=== PATIENT | male | born 1970 | race Two or more races ===

== ENCOUNTER → 2017-10-20 08:37 | Outpatient (CLI) | payer BC | END | disposition home or self-care (01) | LOC: D.CT 10-16 12:00 | DX: I72.3 Aneurysm of iliac artery (principal) ==

== ENCOUNTER 2018-10-22 06:06 | Outpatient (CLI) | payer BC ==
[~2018-10-22] VITALS: Ht 167.6 cm; Wt 76.7 kg
--- NOTE | ~2018-10-22 | HEMODYNAMI ---
PATIENT:EVELYN LEE MEDICAL RECORD: [id number] : 70 LOCATION:DServandoCAT ADMISSION DATE: 10/22/18 Generatedon:10/22/201815:52 Patient name: EVELYN LEE Patient #: [id number] SSN: : 1970 Date of study: 10/22/2018 Page: Of Hemodynamic Procedure Report Patient Data Patient Demographics Procedure consent was obtained First Name: EVELYN Gender: Male Last Name: ROSA : 1970 Patient #: [id number] Age: 48 year(s) Race: Other Additional ID: [id number] Contact details [address]: [address] [place] [address] State: [place] City: [place] Zip code: [address] Past Medical History Allergies: No known allergies Admission Admission Data Admission Date: 10/22/2018 Admission Time: 6:06 Lab Results Lab Result Date: 10/22/2018 Lab Result Time: 0:00 Biochemistry Name Units Result Min Max BUN mg/dl 18 --(---*)-- 7 18 Creatinine mg/dl 1 --(--*-)-- 0.6 1.3 CBC Name Units Result Min Max Hemoglobin g/dl 16.7 --(---*)-- 13.5 17.5 Procedure Procedure Types Cath Procedure Diagnostic Procedure LHC LHC w/Coronaries Peripheral Cath Diagnostic Procedure Senior Vice President & General Counsel Peripheral Procedures Zqoje-Dtygrpi-Hzf-Off Procedure Description Procedure Date Procedure Date: 10/22/2018 Procedure Start Time: 15:34 Procedure End Time: 15:51 Procedure Staff Name Function Philippe Reeder MD Performing Physician Flako Mclean RN Bicycle Inspector eMrcy Mosquera RT Monitor Dee Dejesus RT Scrub Bhakti Millan RN Nurse Procedure Data Cath Procedure Fluoroscopy Diagnostic fluoroscopy Total fluoroscopy Time: 5.7 time: 5.7 min min Diagnostic fluoroscopy Total fluoroscopy dose: 569 dose: 569 mGy mGy Contrast Material Contrast Material Type Amount (ml) Isovue 300 79 Entry Location Entry Primary Successful Side Size Upsize Upsize Entry Closure Bertrand ccessful Closure Location (Fr) 1 (Fr) 2 (Fr) Remarks Device Remarks Radial Right 6 Fr Mechanical artery Short Compression Estimated blood loss: 5 ml Diagnostic catheters Device Type Used For End Catheter Placement DIAGNOSTIC Big Spring 110cm 5 Multi-vessel Fr catheter ([id number]) Angiography DIAGNOSTIC AR2 MOD 5 Fr Right Coronary catheter ([id number]) Angiography DIAGNOSTIC Aqua Multi-vessel Berenstein 125cm 5Fr Angiography catheter ([id number]) Procedure Complications No complications Procedure Medications Medication Administration Route Dosage Oxygen etCO2 Nasal cannula 2 l/min Lidocaine 2% added to field 20 Heparin Flush Bag added to field 2 bags (1000units/500ml NS) 0.9% NaCl I.V. 100 ml/hr Radial Cocktail I.A. 1 syringe (Verapomil 2mg/Nitro 400mcg/Heparin 1500units) Versed I.V. 2 mg Fentanyl I.V. 100 mcg Fentanyl I.V. 50 mcg Lopressor I.V. 5 mg Hemodynamics Rest HGB: 16.7 (g/dl) Heart Rate: 92 (bpm) Pressure Samples Time Site Value (mmHg) Purpose Heart Use Rate(bpm) 15:37 LV 140/57,85 Snapshot 101 Snapshots Pre Cath Intra NCS Post Cath Vital Signs Time Heart Resp SPO2 etCO2 NIBP (mmHg) Rhythm Pain Sedation Rate (ipm) (%) (mmHg) Status Level (bpm) 15:23:55 96 21 100 0 152/98(126) NSR 0 (11) 10(A) , No pain 15:28:07 103 19 100 0 148/97(117) NSR 0 (11) 10(A) , No pain 15:32:17 95 14 100 37.8 146/96(115) NSR 0 (11) 10(A) , No pain 15:36:23 105 14 100 8.3 138/95(126) NSR 0 (11) 9(A) , No pain 15:40:31 102 17 95 36.2 136/86(122) NSR 0 (11) 9(A) , No pain 15:44:39 85 17 98 35.5 131/88(104) NSR 0 (11) 10(A) , No pain 15:48:49 90 29 100 27.2 125/82(99) NSR 0 (11) 10(A) , No pain Medications Time Medication Route Dose Verified Delivered Reason Notes Effectiveness by by 15:31:40 Oxygen etCO2 2 l/min Philippe Ya used for Nasal Lilli Millan RN procedure cannula 15:31:48 Lidocaine 2% added 20ml Philippe Paez for local to vial Lilli Reeder MD anesthetic field 15:31:54 Heparin Flush added 2 bags Philippe Paez used for Bag to Lilli Reeder MD procedure (1000units/500ml field NS) 15:32:05 0.9% NaCl I.V. 100 Philippe Ya Per ml/hr Lilli Millan RN physician 15:32:47 Versed I.V. 2 mg Philippe Ya for sedation Lilli Millan RN 15:32:53 Fentanyl I.V. 100 mcg Philippe Ya for sedation Lilli Millan RN 15:36:40 Radial Cocktail I.A. 1 Philippe Paez for (Verapomil syringe Lilli Reeder MD vasodilation 2mg/Nitro 400mcg/Heparin 1500units) 15:37:20 Fentanyl I.V. 50 mcg Philippe Ya for sedation Lilli Millan RN 15:40:41 Lopressor I.V. 5 mg Philippe Ya Per Lilli Millan RN physician Procedure Log Time Note 15:00:42 Signed procedure consent form obtained from patient. 15:00:43 Diagnostic Cath status Elective 15:00:44 Time tracking: Regular hours (M-F 7:00 - 5:00) 15:00:49 Plan of Care:Hemodynamics will remain stable., Cardiac rhythm will remain stable., Comfort level will be maintained., Respiratory function will remain adequate., Patient/ family verbilizes understanding of procedure., Procedure tolerated without complication., Recovers from procedure without complications.. 15:07:09 Flako Mclean RN sent for patient. Start room use. 15:14:29 Lab Result : Hemoglobin 16.7 g/dl 15:14:29 Lab Result : Creatinine 1 mg/dl 15:14:29 Lab Result : BUN 18 mg/dl 15:16:32 Patient received from ED to CCL 1 Alert and oriented. Tansferred to table in Supine position. 15:16:33 Warm blankets applied, and tyson hugger turned on for patient comfort. 15:16:34 Correct patient and procedure confirmed by team. 15:16:34 ECG and BP/O2 sat monitors applied to patient. 15:22:53 Vital chart was started 15:22:56 Rhythm: sinus rhythm 15:22:59 Baseline sample Acquired. 15:23:00 Full Disclosure recording started 15:23:04 H&P Date Dictated: 10/22/2018 Within 30 days and on chart., ER History on chart.. 15:23:14 Pre-procedure instructions explained to patient. 15:23:15 Pre-op teaching completed and patient verbalized understanding. 15:23:17 Family in waiting room. 15:23:19 Patient NPO since Midnight. 15:23:26 Patient allergic to No known allergies 15:23:28 Is the patient allergic to Iodine/contrast media? No. 15:23:30 Is patient on blood thinner?Yes 15:23:31 ACC The patient was administered the following blood thiners within the last 24 hours: ACCPlavix 15:23:34 Patient diabetic? No. 15:23:45 Previous problem with sedation/anesthesia? No ? 15:23:48 Snore? Yes 15:23:49 Sleep apnea? No 15:23:51 Deviated septum? No 15:23:51 Opens mouth fully? Yes 15:23:52 Sticks out tongue? Yes 15:23:54 Airway obstruction? No ? 15:23:56 Dentures? No ? 15:24:39 Pre procedure: left dorsailis pedis pulse 2+ Normal; easily identifiable; not easily obliterated 15:24:41 Modified Julio's test Ulnar < 7 seconds 15:24:42 Patient pain scale 0/10 ?. 15:24:50 IV patent on arrival in left forearm with 0.9% NaCl at KVO. 15:24:52 Lab results completed and on chart. 15:24:58 Right Radial & Left Groin area was prepped with chlora-prep and draped in sterile fashion 15:25:05 Alarms reviewed by R. N. 15:25:06 Sharps counted by scrub and verified by R.N. 15:25:33 Use device set Radial Dx or PCI 15:25:35 ACIST Syringe (56201) opened to sterile field. 15:25:35 Medline Cath Pack ([id number]) opened to sterile field. 15:25:35 Bag Decanter (2001S) opened to sterile field. 15:25:36 DIAGNOSTIC WIRE .035 260cm J wire (537432) opened to sterile field. 15:25:36 ACIST Hand Control (91634) opened to sterile field. 15:25:37 ACIST Manifold (54051) opened to sterile field. 15:25:37 Tegaderm 4 x 4 (1626W) opened to sterile field. 15:25:38 MBrace Wrist Support ([id number]) opened to sterile field. 15:25:39 SHEATH 6FR Slender (85-9330) opened to sterile field. 15:27:04 Physician arrived 15:: --------ALL STOP TIME OUT------ 15::05 Final Timeout: patient, procedure, and site verified with staff and physician. All members of the team are in agreement. 15:27:08 Right Radial & Left Groin site verified by team. 15:27:11 Physical assessment completed. ASA score P 2 - A patient with mild systemic disease as per Philippe Reeder MD. 15:27:14 Sedation plan: IV Moderate Sedation Medication:Versed, Fentanyl 15:31:40 Oxygen 2 l/min etCO2 Nasal cannula was administered by Bhakti Millan RN; used for procedure; 15:31:48 Lidocaine 2% 20ml vial added to field was administered by Philippe Reeder MD; for local anesthetic; 15:31:54 Heparin Flush Bag (1000units/500ml NS) 2 bags added to field was administered by Philippe Reeder MD; used for procedure; 15:32:05 0.9% NaCl 100 ml/hr I.V. was administered by Bhakti Millan RN; Per physician; 15:32:47 Versed 2 mg I.V. was administered by Bhakti Millan RN; for sedation; 15:32:53 Fentanyl 100 mcg I.V. was administered by Bhakti Millan RN; for sedation; 15:34:22 Procedure started. 15:34:28 Local anesthetic to left radial artery with Lidocaine 2% by Philippe Reeder MD.INITIAL ACCESS ONLY 15:34:50 A 6 Fr Short sheath was inserted into the Right Radial artery 15:35:12 A DIAGNOSTIC Big [place] 110cm 5 Fr catheter (039995) was advanced over the wire and used for Multi-vessel Angiography. 15:36:40 Radial Cocktail (Verapomil 2mg/Nitro 400mcg/Heparin 1500units) 1 syringe I.A. was administered by Philippe Reeder MD; for vasodilation; 15:37:20 Fentanyl 50 mcg I.V. was administered by Bhakti Millan RN; for sedation; 15:37:30 LV hemodynamics recorded. 15:37:31 LV gram done using ROSADO 15:37:34 Injector settings: Ml/sec: 5, Volume: 15, 15:37:43 EF : 70 % 15:38:26 Catheter removed. 15:39:58 A DIAGNOSTIC AR2 MOD 5 Fr catheter ([id number]) was advanced over the wire and used for Right Coronary Angiography. 15:40:41 Lopressor 5 mg I.V. was administered by Bhakti Millan RN; Per physician; 15:40:42 RCA angiography performed. 15:40:45 Injector settings: Ml/sec: 3, Volume: 6, 15:40:59 Catheter removed. 15:41:01 GUIDE 6FR XBLAD 3.5 catheter ([id number]) opened to sterile field. 15:41:09 6 Fr xblad 3.5 guide catheter was inserted over the wire 15:42:34 Guide Catheter removed. unable to cannulate vessel. 15:43:05 GUIDE 6FR EBU 3.0 catheter ([id number]) opened to sterile field. 15:43:55 6 Fr ebu 3 guide catheter was inserted over the wire 15:45:05 LCA angiography performed. 15:45:08 Injector settings: Ml/sec: 3, Volume: 6, 15:45:10 Catheter removed. 15:45:29 A DIAGNOSTIC Aqua Berenstein 125cm 5Fr catheter ([id number]) was advanced over the wire and used for Multi-vessel Angiography. 15:46:16 Abdominal angiogram w/ runoff was performed. 15:48:18 Injector settings: Ml/sec: 10, Volume: 20, 15:48:43 Catheter removed. 15:48:56 TR BAND Standard ([id number]) opened to sterile field. 15:49:42 Sheath removed intact; hemostasis achieved with Mechanical Compression to the Right Radial artery. 15:49:44 Procedure ended.(Physican Out) 15:50:58 Fluoroscopy time 05.70 minutes. 15:51:03 Fluoroscopy dose: 569 mGy 15:51:03 Flurop Dose total: 569 15:51:07 Contrast amount:Isovue 300 79ml. 15:51:09 Sharps counted by scrub and verified by R.N. 15:51:15 TR band inflated with 10cc of air. 15:51:17 Insertion/operative site no bleeding no hematoma. 15:51:21 Post right radial artery:stable 15:51:23 Post Procedure Pulses reassessed and unchanged 15:51:27 Post procedure rhythm: unchanged. 15:51:30 Estimated blood loss: 5 ml 15:51:32 Post procedure instruction explained to patient.Patient verbalizes understanding. 15:51:33 Patient needs reinforcement of post procedure teaching. 15:51:43 Procedure and supply charges have been captured, reviewed, submitted and are correct. 15:51:47 Procedure Complication : No complications 15:51:50 Vital chart was stopped 15:51:50 See physician's report for complete and final results. 15:51:52 Report given to Pre/Post Procedure Room. 15:51:54 Patient transfered to Pre/Post Procedure Room with Stretcher. 15:51:56 Procedure ended. 15:51:56 Full Disclosure recording stopped 15:52:20 End room use (Document Last) Device Usage Item Name Manufacture Quantity Catalog Hospital Part Current Minimal Lot# / Number Charge Number Stock Stock Serial# Code ACIST Acist 1 65167 051386 479112 087066 20 Syringe Medical (68633) Systems Inc Medline Medline 1 [id number] 591319 70106 394267 5 Cath Pack ([id number]) Bag Microtek 1 2001S 800764 22962 908447 5 Decanter Medical Inc. () DIAGNOSTIC [facility] [place] 1 114433 669518 689563 716794 30 WIRE .035 260cm J wire (284629) ACIST Hand Acist 1 61564 589843 401568 878522 5 Control Medical (13996) Systems Inc ACIST Acist 1 77806 536575 024109 712899 5 Manifold Medical (85803) Systems Inc Tegaderm 4 3M 1 1626W 124510 767105 493928 5 x 4 (1626W) MBrace Advanced 1 140-0250-00 633559 87937 680009 5 Wrist Vascular Support Dynamics (582045134) SHEATH 6FR Terumo 1 [id number] 565828 009456 302449 5 Slender (80-1060) DIAGNOSTIC Terumo 1 40-7513 695784 131691 684152 5 Big [place] 110cm 5 Fr catheter (736568) DIAGNOSTIC Cardinal 1 [id number] 690035 134978 356933 20 AR2 MOD 5 Health Fr catheter (421920T) GUIDE 6FR Cardinal 1 [id number] 882062 365532 298725 10 XBLAD 3.5 Health catheter (83474750) GUIDE 6FR Medtronic 1 [id number] 354977 01807 106828 0 EBU 3.0 catheter ([id number]) DIAGNOSTIC Cardinal 1 NOP3817 173736 852962 694848 5 [facility] 125cm 5Fr catheter (ZWJ6253) TR BAND Terumo 1 [id number] 408282 754741 038771 40 Standard ([id number]) Signature Audit Killen Stage Time Signature Unsigned Intra-Procedure 10/22/2018 Mercy Mosquera 3:52:50 PM RT(R) Signatures Monitor : Mercy Mosquera RT Signature : Date : Time : [place] [place] [address]
[2018-10-22 06:10] VITALS: Ht 167.6 cm; Wt 76.7 kg
[2018-10-22] MEDS ORDERED: ZESTRIL40 MG PO (06:12)
[2018-10-22] MEDS ORDERED: PROPRANOLOL HCL20 MG (06:13)
[2018-10-22] MEDS ORDERED: BUTALB-APAP-CA1 EACH PO (06:13)
[2018-10-22 06:40] LABS: BASOPHILS 0.3 % (0-2); EOSINOPHILS 0.5 % (0-7); HEMATOCRIT 48.3 % (42.0-54.0); HEMOGLOBIN 16.7 g/dL (13.5-17.5); IMMATURE GRANULOCYTES 0.3 % (0-5); LYMPHOCYTES 24.3 % (15-50); MCH 29.5 pg (26.0-34.0); MCHC 34.6 g/dL (31.0-37.0); MCV 85.3 fL (80.0-100.0); MEAN PLATELET VOLUME 9.8 fL (7.4-10.4); MONOCYTES 6.8 % (2-11); NEUTROPHILS 67.8 % (40-80); PLATELET COUNT 204 10x3/uL (130-400); RBC 5.66 10x6/uL (4.20-6.10); RDW 13.2 % (11.5-14.5); WBC 7.8 10x3/uL (4.8-10.8)
[2018-10-22 06:50] LABS: APPEARANCE CLEAR (CLEAR); BILIRUBIN NEGATIVE (NEGATIVE); COLOR YELLOW (YELLOW); GLUCOSE NEGATIVE (NEGATIVE); KETONE NEGATIVE (NEGATIVE); NITRITE NEGATIVE (NEGATIVE); PROTEIN NEGATIVE (NEGATIVE); UROBILINOGEN NORMAL (NORMAL)
[2018-10-22 06:51] LABS: ALBUMIN 3.6 g/dL (3.4-5.0); ALKALINE PHOSPHATASE 93 U/L (46-116); ALT (SGPT) 50 U/L (10-68); BILIRUBIN - TOTAL 0.36 mg/dL (0.2-1.3); CALC OSMOLALITY 284 mosm/kg (275-300); CALCIUM 8.5 mg/dL (8.5-10.1); CARBON DIOXIDE 29.5 mmol/L (21.0-32.0); CHLORIDE - SERUM 107 mmol/L (98-107); GLUCOSE 99 mg/dL (74-106); POTASSIUM - SERUM 4.1 mmol/L (3.5-5.1); PROTEIN - SERUM 7.5 g/dL (6.4-8.2); SODIUM 142 mmol/L (136-145); UREA NITROGEN 18 mg/dL (7-18); eGFR NON AFRICAN AMERICAN 85 mL/min (90-120)
[2018-10-22 07:06] LABS: AMYLASE - SERUM 64 U/L (25-115); CKMB 1.5 U/L (0.0-3.6); CREATINE KINASE 141 UL (21-232); LIPASE 156 U/L (73-393)
[2018-10-22 07:16] LABS: TROPONIN-I 0.097 ng/mL (0.000-0.060)
--- NOTE | 2018-10-22 13:29 | CN ---
PATIENT NAME:EVELYN LEE MEDICAL RECORD: [id number] : 70 LOCATION:D.CAT ADMIT DATE: ACCOUNT: [id number] CONSULTING PHYSICIAN: IHSAN REIS MD REFERRING PHYSICIAN: IHSAN REIS MD DATE OF CONSULTATION: 10/22/2018 CARDIOLOGY CONSULTATION DATE OF SERVICE: 10/22/2018 DIAGNOSES: 1. Elevated troponin. 2. Acute coronary syndrome. 3. Family history of coronary artery disease. 4. Hypertension. HISTORY OF PRESENT ILLNESS: This is a gentleman with no history of ischemic heart disease, does have a history of hypertension, family history of coronary artery disease, who awoke with episode of what appears to be epigastric pain, but it was associated with diaphoresis and nausea. His troponin is elevated suggestive this is an acute coronary syndrome picture. His EKG does have ST-T abnormalities anteriorly. He is currently pain free now. PHYSICAL EXAMINATION: GENERAL APPEARANCE: Well-nourished, well-developed, appears stated age. Level of distress, comfortable. PSYCHIATRIC: Mental status, alert, normal affect. Orientation, oriented to time, place and person. EYES: Lids and conjunctiva, noninjected. No discharge, no pallor. ENT: Lips, teeth, gums, normal dentition. Oropharynx, no cyanosis, no pallor. NECK: Carotid arteries, bilateral normal upstroke, no bruits, no thrills. JUGULAR VEINS: No jugular venous pressure or distention. CERVICAL LYMPH NODES: Nontender, nonenlarged. THYROID: Not enlarged. Nontender. No nodules. LUNGS: Respiratory effort, unlabored. CHEST: Normal curvature. No thoracic deformity. No chest wall tenderness. Percussion, resonant. Auscultation, clear. No wheezes, no rales, no rhonchi. CARDIOVASCULAR: Precordial exam, nondisplaced. No heaves or pericardial thrills. Rate and rhythm, regular. Heart sounds, normal S1, normal S2. No S3, no gallop, no rub. Systolic murmur, not heard. Diastolic murmur, not heard. EXTREMITIES: No cyanosis, no edema. Peripheral pulses, full and equal in all extremities, except as noted. No bruits appreciated. ABDOMEN: Soft, nondistended. Normal aorta. No bruit. Nontender. No masses. Liver, nontender, no hepatomegaly. Spleen, nontender, no splenomegaly. MUSCULOSKELETAL: No joint tenderness. No joint swelling. No erythema. NEUROLOGICAL: Normal gait, normal strength, normal tone. SKIN: Warm and dry. OVERALL IMPRESSION: Acute coronary syndrome with mildly elevated troponin, most likely has hemodynamically significant coronary artery disease. We will proceed with coronary angiography. Further care depends upon findings of the angiography. TRANSINT:[id number] Voice Confirmation ID: [id number] DOCUMENT ID: [id number] CONSULT REPORT [id number] EVELYN LEE, IHSAN HARLEY at 1329 CC: [id number] DICTATION DATE: 10/22/18 1150 RETORT PRESS OPERATOR: 10/22/18 1212 [facility] [address] [place] [address]
[2018-10-22 15:17] VITALS: BP 144/90
--- NOTE | 2018-10-22 16:05 | NUR ---
PT RECEIVED VIA STRETCHER FROM TACTICAL DEBRIEFER OFFICER FOR RECOVERY. PT AWAKE, DENIES CHEST PAIN OR NAUSEA. HR NSR RATE 79, BP 133/95, 02 SAT 99 ON ROOM AIR. TR BAND TO R WRIST IN PLACE, NO BLEEDING OR HEMATOMA NOTED. CAP REFILL BRISK, EXTREMITY WARM AND PINK. CALL LIGHT IN REACH. AT BEDSIDE.
--- NOTE | 2018-10-22 16:31 | NUR ---
PT AWAKE VISITING W FAMILY, DENIES PAIN OR NEEDS. TR BAND IN PLACE, NO BLEEDING OR HEMATOMA NOTED. HR NSR RATE 75, BP 130/91. CALL LIGHT IN REACH
--- NOTE | 2018-10-22 16:50 | NUR ---
SANDWICH AND DRINK SERVED PER REQUEST. PT DENIES NAUSEA OR PAIN. CALL LIGHT IN REACH, AT BEDSIDE.
--- NOTE | 2018-10-22 17:05 | NUR ---
4 CC AIR REMOVED FROM TR BAND, NO BLEEDING OR SWELLING NOTED. HR NSR RATE 70, BP 132/74. DENIES PAIN OR NEEDS. CALL LIGHT IN REACH
--- NOTE | 2018-10-22 17:30 | NUR ---
3 ADD'L CC OF AIR REMOVED FROM TR BAND, NO BLEEDING OR SWELLING NOTED. CAP REFILL BRISK, EXTREMITY REMAINS WARM AND PINK PT DENIES PAIN OR NEEDS. REMAINS AT BEDSIDE.
--- NOTE | 2018-10-22 17:45 | NUR ---
DISCHARGE INSTRUCTIONS REVIEWED WITH PT AND , BOTH VERBALIZED UNDERSTANDING. IV REMOVED W CATH INTACT, MONITORS REMOVED. PT UP TO DRESS FOR DISCHARGE
--- NOTE | 2018-10-22 17:59 | NUR ---
TR BAND AND REMAINING AIR REMOVED. 2X2 AND TEGADERM DRESSING APPLIED. NO BLEEDING OR SWELLING NOTED TO SITE. PT DISCHARGED VIA WC TO PRIVATE VEHICLE.
--- NOTE | 2018-10-23 16:39 | OP ---
PATIENT NAME: EVELYN LEE MEDICAL RECORD: [id number] :70 LOCATION:D.CAT ADMISSION DATE: SURGEON: IHSAN REIS MD DATE OF OPERATION: 10/22/2018 PROCEDURES: 1. Left heart catheterization. 2. Selective coronary angiography. 3. Left ventriculogram. 4. Aortofemoral runoff. 5. Abdominal aortography. INDICATION: Chest pain compatible with angina, elevated troponin, peripheral vascular disease. PROCEDURE IN DETAIL: After informed consent was obtained with detailed description of risks and benefits as well as alternative therapies, the patient elected to proceed with angiogram and heart catheterization. The right radial area was prepped and draped in normal sterile fashion. Right radial artery was cannulated via modified Seldinger technique with placement of 5-Mongolian sheath. All catheters were exchanged through this sheath. FINDINGS: Left ventriculogram performed in standard 30-degree ROSADO view reveals good cardiac wall motion throughout all segments. Overall ejection fraction is estimated at 60%. SELECTIVE CORONARY ANGIOGRAPHY: 1. Left main, left anterior descending, left circumflex, and right coronary artery are all smooth-walled vessels with no angiographic evidence of coronary artery disease. 2. Aortofemoral runoff was performed. The catheter was pulled back for abdominal aortography. FINDINGS: Abdominal aortography reveals no significant abdominal aortic disease. No dissection or aneurysm formation. RIGHT LE. Common internal and external iliacs are smooth-walled vessels with no angiographic evidence of peripheral vascular disease. 2. FEMORAL SYSTEM: Common, superficial, and deep femorals have no significant peripheral vascular disease. 3. Popliteal and infrapopliteal vessels give good 3-vessel runoff to the foot with no significant peripheral vascular disease. LEFT LE. Common internal and external iliacs are smooth-walled vessels with no angiographic evidence of peripheral vascular disease. 2. FEMORAL SYSTEM: Common, superficial, and deep femorals have no significant peripheral vascular disease. 3. Popliteal and infrapopliteal vessels give good 3-vessel runoff to the foot with no significant peripheral vascular disease. OVERALL IMPRESSION: 1. No peripheral vascular disease is present. 2. No coronary disease is present. OPERATIVE REPORT [id number] EVELYN LEE 3. Normal LV function. Symptomatology is not cardiovascular in etiology. TRANSINT:[id number] Voice Confirmation ID: [id number] DOCUMENT ID: [id number] IHSAN REIS MD at 1639 CC: [id number] DICTATION DATE: 10/22/18 1553 SEISMOMETER OPERATOR: 10/22/18 1755 DEP CLI 10/22/18 [place] [id number] [place] [address]
== END 2018-10-22 18:00 | disposition home or self-care (01) ==
LOC: D.CATH 06:06 → D.ER 06:06 → EDSTATUS 11:09 → D.CATH 18:00
PROVIDERS: Family Medicine
DX: R79.89 Other specified abnormal findings of blood chemistry (principal); R10.13 Epigastric pain; R11.0 Nausea; R61 Generalized hyperhidrosis; I10 Essential (primary) hypertension

== ENCOUNTER → 2019-01-23 15:30 | Outpatient (CLI) | payer BC ==
[~2019-01-23 15:30] MED LIST: BUTALB-APAP-CA1 EACH PO; PROPRANOLOL HCL20 MG; ZESTRIL40 MG PO
== END | disposition home or self-care (01) ==
LOC: D.CT 13:00
PROVIDERS: ATTEND Internal Medicine Cardiovascular Disease
DX: I72.3 Aneurysm of iliac artery (principal)

== ENCOUNTER → 2020-04-27 09:54 | Outpatient (CLI) | payer BC | END | disposition home or self-care (01) | LOC: D.CT 09:54 | PROVIDERS: ATTEND Internal Medicine Cardiovascular Disease | DX: I72.3 Aneurysm of iliac artery (principal) ==

== ENCOUNTER 2020-07-02 12:17 | Inpatient (IN) | payer BC ==
[~2020-07-02] VITALS: Ht 167.6 cm; Wt 75.0 kg
--- NOTE | ~2020-07-02 | OP ---
PATIENT NAME: EVELYN LEE MEDICAL RECORD: [id number] :70 LOCATION:D.ALFREDOI D.CV08 ADMISSION DATE:07/09/20 SURGEON: SILVIANO CID MD DATE OF OPERATION: 07/09/2020 CO-SURGEON: 1. Silviano Cid MD 2. 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 PROCEDURE NOTE: By mutual agreement, the operative report was dictated by Dr. José Miguel Hinton. We were co-surgeons with percutaneous access ultrasound-guided to both common femoral arteries deploying the graft and percutaneous closure. TRANSINT:[id number] Voice Confirmation ID: [id number] DOCUMENT ID: [id number] SILVIANO CID MD CC: [id number] DICTATION DATE: 07/14/20 1325 MUTTON PUNCHER: 07/14/20 2234 DIS IN 07/11/20 [place] [id number] [place] [id number]
--- NOTE | ~2020-07-02 | HEMODYNAMI ---
PATIENT:EVELYN LEE MEDICAL RECORD: [id number] : 70 LOCATION[facility] ADMISSION DATE: 07/09/20 Generatedon:07/09/202010:02 Patient name: EVELYN LEE Patient #: [id number] SSN: : 1970 Date of study: 07/09/2020 Page: Of Hemodynamic Procedure Report Patient Data Patient Demographics Procedure consent was obtained First Name: EVELYN Gender: Male Last Name: ROSA : 1970 Patient #: [id number] Age: 50 year(s) Race: Other Additional ID: [id number] Contact details Address: [address] [place] [address] State: [place] City: [place] Zip code: [address] Past Medical History Allergies: No known allergies Admission Admission Data Admission Date: 07/09/2020 Admission Time: 5:13 Room #: [facility] Procedure Procedure Types Cath Procedure Peripheral Cath Diagnostic Procedure Miscellaneous Procedure Description Procedure Date Procedure Date: 07/09/2020 Procedure Start Time: 8:14 Procedure Staff Name Function Silviano Gray MD Performing Physician José Miguel Hinton MD Performing Physician Kamaljit Valderrama Jr, CRNA Additional personnel Nikia Mark RN Nurse Ha Powell RT Scrub ISABEL PADILLA RT Monitor Procedure Data Cath Procedure Fluoroscopy Diagnostic fluoroscopy Total fluoroscopy Time: time: 22.7 min 22.7 min Diagnostic fluoroscopy Total fluoroscopy dose: 741 dose: 741 mGy mGy Contrast Material Contrast Material Type Amount (ml) Isovue 300 55 Entry Location Entry Primary Successful Side Size Upsize Upsize Entry Closure Succe ssful Closure Location (Fr) 1 (Fr) 2 (Fr) Remarks Device Remarks Femoral Right 8 Fr Perclose artery ProGlide Femoral Left 8 Fr Perclose artery ProGlide Diagnostic catheters Device Type Used For End Catheter Placement Cook PIGTAIL CALIBRATED 5FR 100CM catheter ([id number]) Hemodynamics Rest Pre Cath Intra NCS Post Cath Procedure Log Time Note 7:20:30 Kamaljit Valderrama Jr, CRNA present and monitoring patient for TIVA. 7:20:44 Nikia Mark RN sent for patient. Start room use. 7:23:47 Time tracking: Regular hours (M-F 7:00 - 5:00) 7:23:52 Plan of Care:Hemodynamics will remain stable., Cardiac rhythm will remain stable., Comfort level will be maintained., Respiratory function will remain adequate., Patient/ family verbilizes understanding of procedure., Procedure tolerated without complication., Recovers from procedure without complications.. 7:23:59 Patient received from Outpatients to IR Alert and oriented. Tansferred to table in Supine position. 7:24:01 Signed procedure consent form obtained from patient. 7:24:02 Warm blankets applied, and tyson hugger turned on for patient comfort. 7:24:03 Correct patient and procedure confirmed by team. 7:24:04 ECG and BP/O2 sat monitors applied to patient. 7:24:05 7:24:11 H&P Date Dictated: 07/09/2020 H&P Addendum completed by physician on day of procedure. (MUST COMPLETE FOR ALL OUTPATIENTS). 7:24:12 Pre-procedure instructions explained to patient. 7:24:13 Pre-op teaching completed and patient verbalized understanding. 7:24:16 Patient NPO since Midnight. 7:24:23 Patient allergic to No known allergies 7:24:26 Is the patient allergic to Iodine/contrast media? No. 7:24:31 ---- See anethesia note for Pre-sedation anethsthesia assessment and patient monitoring.---- 7:25:01 7:25:05 Use device set IR Diagnostic 7:25:07 ACIST Syringe (58929) opened to sterile field. 7:25:08 ACIST Hand Control (19958) opened to sterile field. 7:25:08 ACIST Manifold (18700) opened to sterile field. 7:25:09 Bag Decanter (2001S) opened to sterile field. 7:25:09 Sterile Angiographic Pack opened to sterile field. 7:25:09 Tegaderm 4 x 4 (1626W) opened to sterile field. 7:25:42 MICROPUNCTURE 4FR Cook (V89726) opened to sterile field. 7:25:42 BENTSON 145cm wire (I25525) opened to sterile field. 7:25:43 ZHU 180cm wire (G50344) opened to sterile field. 7:25:43 ZHU 260 wire (P98228) opened to sterile field. 7:25:44 TUBING High Pressure Extension (IABP) opened to sterile field. 7:27:00 Bilateral groins prepped with chlora-prep and draped in sterile fashion. 7:27:01 Alarms reviewed by R. N. 7:27:02 Sharps counted by scrub and verified by R.N. 7:27:22 7:31:10 INFLATOR BasixTOUCH (TV4554) opened to sterile field. 7:35:27 GLIDE WIRE ANGLE 260cm (CB1574) opened to sterile field. 7:35:28 TORQUE DEVICE PLASTIC .038 ( TD01) opened to sterile field. 7:52:29 Pre procedure: right dorsailis pedis pulse Doppler 7:52:31 Pre procedure: left dorsailis pedis pulse Doppler 7:52:33 Pre procedure: right posterior tibial pulse Doppler 7:52:36 Pre procedure: left posterior tibial pulse Doppler 7:52:41 8:01:31 GLIDE CATHETER 5FR ANGLED 100cm (CG508) opened to sterile field. 8:01:33 A Cook PIGTAIL CALIBRATED 5FR 100CM catheter (F61112) was opened to sterile field . 8:01:34 PERCLOSE Proglide 6FR ( 40183479) opened to sterile field. 8:01:35 PERCLOSE Proglide 6FR ( 12192075) opened to sterile field. 8:01:50 8:07:15 SHEATH 6FR Marcellus (SQO785) opened to sterile field. 8:07:16 SHEATH 6FR Marcellus (DKY385) opened to sterile field. 8:07:17 Physician arrived 8:12:28 --------ALL STOP TIME OUT------ 8:12:29 Final Timeout: patient, procedure, and site verified with staff and physician. All members of the team are in agreement. 8:12:31 Bilateral groins site verified by team. 8:12:40 Full Disclosure recording started 8:12:40 Procedure started. 8:12:40 Fire Safety Assessment: A--An alcohol-based skin anteseptic being used preoperatively., C--Open oxygen or nitrous oxide is being used., E--There are other possible contributors. 8:17:00 2) 60-89 Mildly reduced kidney function, and other findings (as for stage 1) point to kidney disease. 8:26:29 DOC .035 wire (A65569) opened to sterile field. 8:32:46 PERCLOSE Proglide 6FR ( 89877514) opened to sterile field. 8:32:55 SNARE GOOSENECK 20MM LOOP 120C opened to sterile field. 8:45:32 Access obtained with 4Fr micropunture. 8:56:09 A 8 Fr sheath was inserted into the Right Femoral artery 8:56:20 A 8 Fr sheath was inserted into the Left Femoral artery 9:08:22 GLIDE WIRE ADVANTAGE 260cm (QH3553) opened to sterile field. 9:10:31 Expiration dates of all grafts read and verified by scrub and burlapper before placed on sterile field. 9:27:34 Inflate balloon Inflation number: 1 A Evercross 10 x 20 x 135 Balloon ([id number]) was prepped and advanced across the Undefined1 , then inflated . 9:47:45 BENTSON 145cm wire (N57604) opened to sterile field. 9:54:42 Fluoroscopy time 22.70 minutes. 9:54:47 Fluoroscopy dose: 741 mGy 9:54:47 Flurop Dose total: 741 9:54:51 Contrast amount:Isovue 300 55ml. 9:54:53 Maximum allowable dose exceeded? No. 9:56:09 Sheath removed intact; hemostasis achieved with Perclose ProGlide to the Right Femoral artery. 9:56:20 Sheath removed intact; hemostasis achieved with Perclose ProGlide to the Left Femoral artery. 9:56:51 Procedure ended.(Physican Out) 9:58:38 Procedure and supply charges have been captured, reviewed, submitted and are correct. 9:58:47 Post right femoral artery:stable, soft, clean and dry 9:58:53 Post left femerol artery:stable, soft, clean and dry 9:59:27 See physician's report for complete and final results. Intervention Summary Intervention Notes Time ActionType Lesion and Equipment Used Action# Pressure Duration Attributes 9:27:34 Inflate Undefined1 Evercross 10 x 1 0 00:00 balloon 20 x 135 Balloon ([id number]) Device Usage Item Name Manufacture Quantity Catalog Number Hospital Part Current M inimal Lot# / Charge Number Stock Stock Serial# Code ACIST Syringe Acist 1 06106 193371 632041 106288 2 0 (68588) Medical Systems Inc ACIST Hand Acist 1 72186 001779 585432 269125 5 Control (15980) [employer] Inc ACIST Manifold Acist 1 82812 697741 699621 409476 5 (60147) Medical Systems Inc Bag Decanter Microtek 1 887185 18684 142344 5 () Medical Inc. Sterile Cardinal 1 [id number] 464381 487600 5 Angiographic Health Pack Tegaderm 4 x 4 3M 1 1626W 309810 541917 228877 5 (1626W) MICROPUNCTURE Cook Medical 1 L30790 058302 062617 827895 5 4FR Cook (U98041) BENTSON 145cm Cook Medical 2 N51086 546850 539851 5 wire (T24422) ZHU 180cm Cook Medical 1 K09757 427013 706108 5 wire (P28562) ZHU 260 wire Cook Medical 1 Y76562 578529 39298 449250 5 (C28137) TUBING High Merit 1 [id number] 862051 844470 482127 5 Pressure Medical Extension (IABP) INFLATOR Merit 1 KP0649 941675 489913 904491 5 BasixTOUCH Medical (HD8685) GLIDE WIRE Terumo 1 CK0276 255257 261718 402743 5 ANGLE 260cm (SD4155) TORQUE DEVICE Ary 1 TD01 073802 274755 866306 5 PLASTIC .038 ( Scientific TD01) GLIDE CATHETER Terumo 1 CG503 166451 088635 5 5FR COBRA 100cm (CG503) GLIDE CATHETER Terumo 1 CG508 485653 15325 373969 4 5FR ANGLED 100cm (CG508) Cook PIGTAIL Cook Medical 1 F43522 092755 724924 804360 5 CALIBRATED 5FR 100CM catheter (T48434) PERCLOSE Ellis 3 91075-396 211037 940733 044725 5 Proglide 6FR ( Vascular 67655224) SHEATH 6FR Terumo 2 UJS653 896934 099119 694427 4 0 Marcellus (VVD118) DOC .035 wire Cook Medical 1 M69038 301556 944931 5 (S67706) SNARE GOOSENECK Medtronic 1 YY4309 149058 466762 328031 5 20MM LOOP 120C GLIDE WIRE Terumo 1 II2932 847258 323836 5 ADVANTAGE 260cm (BJ9824) Evercross 10 x Medtronic 1 [id number] 084823 473872 796798 5 20 x 135 Balloon ([id number]) Signature Audit [place] Stage Time Signature Unsigned Intra-Procedure 07/09/2020 ISABEL PADILLA RT 10:01:55 AM (R) [facility] [address] [facility] [place] [address]
[~2020-07-02 12:17] MED LIST changes: -PROPRANOLOL HCL20 MG; +PROPRANOLOL HCL20 MG PO
[2020-07-05 17:30] LABS: BASOPHILS 0.3 % (0-2); EOSINOPHILS 2.9 % (0-7); HEMATOCRIT 46.5 % (42.0-54.0); HEMOGLOBIN 15.7 g/dL (13.5-17.5); IMMATURE GRANULOCYTES 0.4 % (0-5); LYMPHOCYTES 43.4 % (15-50); MCH 28.9 pg (26.0-34.0); MCHC 33.8 g/dL (31.0-37.0); MCV 85.5 fL (80.0-100.0); MEAN PLATELET VOLUME 9.7 fL (7.4-10.4); MONOCYTES 13.5 % (2-11); NEUTROPHILS 39.5 % (40-80); PLATELET COUNT 189 10x3/uL (130-400); RBC 5.44 10x6/uL (4.20-6.10); RDW 12.9 % (11.5-14.5); WBC 7.2 10x3/uL (4.8-10.8)
[2020-07-05 17:36] LABS: APTT 32.6 SECONDS (22.8-39.4); INR 1.02 (0.85-1.17); PROTIME 13.4 SECONDS (11.6-15.0)
[2020-07-05 17:49] LABS: ALBUMIN 3.7 g/dL (3.4-5.0); ALKALINE PHOSPHATASE 99 U/L (30-120); ALT (SGPT) 30 U/L (10-68); BILIRUBIN - TOTAL 0.32 mg/dL (0.2-1.3); CALC OSMOLALITY 281 mosm/kg (275-300); CALCIUM 8.7 mg/dL (8.5-10.1); CARBON DIOXIDE 29.1 mmol/L (21.0-32.0); CHLORIDE - SERUM 106 mmol/L (98-107); CREATININE - SERUM 1.1 mg/dL (0.6-1.3); GLUCOSE 96 mg/dL (74-106); POTASSIUM - SERUM 4.3 mmol/L (3.5-5.1); PROTEIN - SERUM 7.4 g/dL (6.4-8.2); SODIUM 140 mmol/L (136-145); UREA NITROGEN 22 mg/dL (7-18); eGFR NON AFRICAN AMERICAN 75 mL/min (90-120)
[2020-07-06 08:20] LABS: NITRITE NEGATIVE (NEGATIVE)
[2020-07-06 08:21] LABS: BILIRUBIN NEGATIVE (NEGATIVE); KETONE NEGATIVE (NEGATIVE); UROBILINOGEN NORMAL mg/dL (< 2)
[2020-07-09] VITALS (69 sets, daily range): BP systolic 90–192; BP diastolic 44–89; Ht 167.6 cm; Wt 75.0 kg
--- NOTE | 2020-07-09 10:24 | NUR ---
Pt arrived to unit via bed. On 15L O2 via simple mask. Connected to environmental monitoring specialist. Bilateral groin incision with dressing c/d/i. PIV to left forearm/left ac. Arouses to voice. Answers questions appropriately. Will continue to monitor.
--- NOTE | 2020-07-09 13:00 | NUR ---
Resting comfortably. Rates pain 0/10. Bilateral groin dressing c/d/i. Soft to palpation. Tolerating clear liquids. No further needs. Will continue to monitor.
--- NOTE | 2020-07-09 15:00 | NUR ---
Arouses to voice. Denies having pain at incision sites. Reports slight headache. Reports that he normally takes excedrin for migraine headaches. Continues on nitroglycerin at 30mcg/min and cleviprex 1mg/hr. Tolerated jello and clear liquids. No further needs at this time. Bilateral groin sites c/d/i, soft to palpation. No further needs at this time. Will continue to monitor.
--- NOTE | 2020-07-09 17:03 | NUR ---
Pt continued to report headache. Episode of nausea and vomiting at this time. Decreased nitroglycerin drip to 15mcg/min and increased cleviprex to 2mg/h to see if it helps decrease headache.
--- NOTE | 2020-07-09 17:22 | NUR ---
Dr. Hurley notified [facility] pt report headache. Orders received.
--- NOTE | 2020-07-09 17:36 | NUR ---
Morphine 2mg IV given for pain per Dr. Hurley's order.
[2020-07-09] MEDS ORDERED: AMERGE2.5 MG PO (19:01)
--- NOTE | 2020-07-09 19:02 | NUR ---
Dr. Hurley notified that patient takes naratriptan at home for migraines. Okay to take while he is here per Dr. Hurley. Spouse will bring medication from home and will be sent to pharmacy for labeling.
[2020-07-10] VITALS (86 sets, daily range): BP systolic 106–159; BP diastolic 53–92
[2020-07-10 06:55] LABS: HEMATOCRIT 36.6 % (42.0-54.0); HEMOGLOBIN 12.3 g/dL (13.5-17.5); MCH 28.2 pg (26.0-34.0); MCHC 33.6 g/dL (31.0-37.0); MCV 83.9 fL (80.0-100.0); MEAN PLATELET VOLUME 9.6 fL (7.4-10.4); RBC 4.36 10x6/uL (4.20-6.10); RDW 12.9 % (11.5-14.5); WBC 9.1 10x3/uL (4.8-10.8)
[2020-07-10 07:25] LABS: CALC OSMOLALITY 276 mosm/kg (275-300); CALCIUM 7.7 mg/dL (8.5-10.1); CARBON DIOXIDE 26.5 mmol/L (21.0-32.0); CHLORIDE - SERUM 105 mmol/L (98-107); CREATININE - SERUM 0.8 mg/dL (0.6-1.3); GLUCOSE 127 mg/dL (74-106); POTASSIUM - SERUM 3.1 mmol/L (3.5-5.1); SODIUM 138 mmol/L (136-145); UREA NITROGEN 10 mg/dL (7-18); eGFR NON AFRICAN AMERICAN > 90 mL/min (90-120)
--- NOTE | 2020-07-10 08:00 | NUR ---
Assisted up to chair. Denies dizziness upon standing. No nausea reported at this time. On cleviprex and nitro. See iv flowsheet for rates. Plasmolyte infusing at 100ml/hr. Piv x 2 to left forearm/ac. Denies pain. States that headache is controlled. Bilateral groin sites C/D/I. O2 sat 98% on 2L. Oxygen removed at this time. Will continue to monitor.
--- NOTE | 2020-07-10 10:15 | NUR ---
Diane cardenas'saji per order. Pt tolerated well.
--- NOTE | 2020-07-10 10:52 | NUR ---
Pt reports headache. Has already had his two doses of naratriptan. Cannot have any more at this time. Dr. Gray notified. Ordered one time dose of ibuprophen 600mg tab.
--- NOTE | 2020-07-10 13:00 | NUR ---
Resting comfortably in chair. Denies having headache at this time. Spouse at bedside. No further needs at this time. Will continue to monitor.
--- NOTE | 2020-07-10 19:15 | NUR ---
PT REC'D TO CARE, MONITORS/ALARMS ON. AT BS. PT BULGARIAN SPEAKING BUT ABLE TO CONVEY NEEDS AND FOLLOW DIRECTIONS. CLEVIPREX INFUSING - SEE FLOWSHEET, WILL CONT TO WEAN TOLERATED. SEE LACING CUTTER. C/L IN REACH.
[2020-07-11] VITALS (15 sets, daily range): BP systolic 129–150; BP diastolic 80–95
--- NOTE | 2020-07-11 03:00 | NUR ---
PT IN RECLINER AT THIS TIME. VSS. DENIES PAIN OR NEEDS. ALARMS ON AND C/L IN REACH.
[2020-07-11 06:45] LABS: HEMATOCRIT 38.2 % (42.0-54.0); HEMOGLOBIN 12.7 g/dL (13.5-17.5); MCH 28.5 pg (26.0-34.0); MCHC 33.2 g/dL (31.0-37.0); MCV 85.8 fL (80.0-100.0); MEAN PLATELET VOLUME 9.7 fL (7.4-10.4); RBC 4.45 10x6/uL (4.20-6.10); RDW 13.1 % (11.5-14.5); WBC 7.9 10x3/uL (4.8-10.8)
[2020-07-11 06:55] LABS: CALC OSMOLALITY 276 mosm/kg (275-300); CALCIUM 8.4 mg/dL (8.5-10.1); CARBON DIOXIDE 27.9 mmol/L (21.0-32.0); CHLORIDE - SERUM 107 mmol/L (98-107); GLUCOSE 95 mg/dL (74-106); POTASSIUM - SERUM 4.2 mmol/L (3.5-5.1); SODIUM 139 mmol/L (136-145); UREA NITROGEN 11 mg/dL (7-18); eGFR NON AFRICAN AMERICAN 84 mL/min (90-120)
--- NOTE | 2020-07-11 07:30 | NUR ---
LAYING IN BED WITH AT BEDSIDE, NO DISTRESS NOTED, CALL LIGHT IN REACH, WILL MONITOR
--- NOTE | 2020-07-11 08:10 | NUR ---
BREAKFAST TRAY SERVED, PT SITTING UP FEEDING SELF, CALL LIGHT IN REACH
--- NOTE | 2020-07-11 11:45 | NUR ---
dr shook here seeing patient
--- NOTE | 2020-07-11 12:10 | NUR ---
lunch tray served
--- NOTE | 2020-07-11 13:29 | NUR ---
PIVS DCd at this time, catheter intact
--- NOTE | 2020-07-11 13:35 | NUR ---
pt discharged home via wheelchair with family member present, discharge instructions given and medications explained, pt verbalizes understanding, bilat groins soft and nontender, pedal pulses present, chance pain at this time
--- NOTE | 2020-07-11 14:11 | MORECARE ---
CASE MANAGEMENT DISCHARGE SUMMARY PATIENT: EVELYN LEE UNIT: [id number] ADM DATE: 07/09/20 AGE: 50 : 70 SEX: M ROOM/BED: D[facility] AUTHOR: JASON SLOAN PHYSICIAN: REFERRING PHYSICIAN: ALEJANDRO CID MD DATE OF SERVICE: 07/11/20 Discharge Plan Patient Name: EVELYN LEE Facility: [facility]:[place] : 1970 Planned Disposition: Home Anticipated Discharge Date: 07/11/20 Discharge Date: Expected LOS: 2 Initial Reviewer: [email or web address] Initial Review Date: 07/09/2020 Generated: 07/11/20 3:10 pm Comments DCP- Discharge Planning Updated by [email or web address]: Karine Roberson on 07/11/20 1:[address] CM met with patient and his , Lilia Wu ([phone]) for DC plans. Patient is in agreement to same. Patient lives independently with his , in their home, still works. PCP: Stuart Andrea. Pharmacy: [facility]. DME: Denies having any or needing any. CM discussed HHS, SNF, Rehab, but patient and his deny the need of any services at this time. Spouse will drive patient home. Notified patient's nurse of no DC needs. Patient Name: EVELYN LEE Page [phone] at 1411 All edits/amendments must be made on the electronic document DICTATION DATE: 07/11/20 141 PROVISIONING ANALYST: KASEY 07/11/20 141 RPT#: [id number] DC DATE: STATUS: ADM IN [facility] [address] [place] [address] END OF REPORT
--- NOTE | 2020-07-11 14:17 | MORECARE ---
CASE MANAGEMENT DISCHARGE SUMMARY PATIENT: EVELYN LEE UNIT: [id number] ADM DATE: 07/09/20 AGE: 50 : 70 SEX: M ROOM/BED: D[facility] AUTHOR: NATHALIA,DOC PHYSICIAN: REFERRING PHYSICIAN: ALEJANDRO CID MD DATE OF SERVICE: 07/11/20 Discharge Plan Patient Name: EVELYN LEE Facility: [facility]:[place] : 1970 Planned Disposition: Home Anticipated Discharge Date: 07/11/20 Discharge Date: Expected LOS: 2 Initial Reviewer: [email or web address] Initial Review Date: 07/09/2020 Generated: 07/11/20 3:17 pm Comments DCP- Discharge Planning Updated by [email or web address]: Karine Roberson on 07/11/20 1:[address] CM met with patient and his , Lilia Wu ([phone]) for DC plans. Patient is in agreement to same. Patient lives independently with his , in their home, still works. PCP: Stuart Andrea. Pharmacy: [facility]. DME: Denies having any or needing any. CM discussed HHS, SNF, Rehab, but patient and his deny the need of any services at this time. Spouse will drive patient home. Notified patient's nurse of no DC needs. DCPIA - Discharge Planning Initial Assessment Updated by [email or web address]: Karine Roberson on 07/11/20 2:12 pm * Is the patient Alert and Oriented? Yes * PCP Stuart Andrea * Pharmacy [facility] * Preadmission Environment Home with Family * ADLs Independent * Equipment None * Other Equipment NA * List name and contact numbers for known caregivers / representatives who currently or will assist patient after discharge: Lilia Wu () [phone] * Verbal permission to speak to the caregivers and representatives has been obtained from the patient. Yes * Community resources currently utilized None * Please name any agencies selected above. NA * Additional services required to return to the preadmission environment? No * Can the patient safely return to the preadmission environment? Yes * Has this patient been hospitalized within the prior 30 days at any hospital? No Patient Name: EVELYN LEE Page [phone] at 1417 All edits/amendments must be made on the electronic document DICTATION DATE: 07/11/201416 RED HAT LINUX ADMINISTRATOR: KASEY 07/11/201416 RPT#: [id number] DC DATE: STATUS: ADM IN [facility] [address] [place] [address] END OF REPORT
== END 2020-07-11 14:30 | disposition home or self-care (01) | DRG 272 ==
LOC: D.CVICU 07-09 05:13 → D.SDCHOLD 07-09 05:13 → D.CVICU 07-09 09:21
PROVIDERS: ADMIT Thoracic Surgery (Cardiothoracic Vascular Surgery); ATTEND Thoracic Surgery (Cardiothoracic Vascular Surgery)
PROC: 04VC3DZ Restriction of Right Common Iliac Artery with Intraluminal Device, Percutaneous Approach (ICD-10-PCS; principal; 2020-07-09 07:30)
DX: I72.3 Aneurysm of iliac artery (principal); I10 Essential (primary) hypertension

== ENCOUNTER → 2020-07-16 08:45 | Outpatient (CLI) | payer BC ==
[2020-07-09 11:16] VITALS: BMI 26.8
[~2020-07-16 08:45] MED LIST changes: +AMERGE2.5 MG PO
== END | disposition home or self-care (01) ==
LOC: D.US 08:45
PROVIDERS: ATTEND Thoracic Surgery (Cardiothoracic Vascular Surgery)
DX: T14.8XXA Other injury of unspecified body region, initial encounter (principal)

== ENCOUNTER → 2020-07-26 07:40 | Outpatient (CLI) | payer BC ==
[2020-07-09 11:16] VITALS: BMI 26.8
== END | disposition home or self-care (01) ==
LOC: D.CT 07:40
PROVIDERS: ATTEND Thoracic Surgery (Cardiothoracic Vascular Surgery)
DX: I73.9 Peripheral vascular disease, unspecified (principal)

== ENCOUNTER → 2021-03-09 13:37 | Outpatient (CLI) | payer BC ==
[2020-07-09 11:16] VITALS: BMI 26.8
== END | disposition home or self-care (01) ==
LOC: D.CT 13:37
PROVIDERS: ATTEND Thoracic Surgery (Cardiothoracic Vascular Surgery)
DX: I72.3 Aneurysm of iliac artery (principal)